=== PATIENT | male | born 1985 | race Asian ===

== ENCOUNTER 2017-06-27 21:06 | Emergency (ER) | payer OTHER ==
[~2017-06-27] VITALS: Ht 165.1 cm; Wt 70.0 kg
[2017-06-27] MEDS ORDERED: LORAZEPAM 0.5MG TABLET PO ONE (23:00)
[2017-06-27 23:35] VITALS: BP 138/78
== END 2017-06-27 23:53 | disposition home or self-care (01) ==
LOC: ER 21:19
DX: F41.9 Anxiety disorder, unspecified (principal); G47.00 Insomnia, unspecified
CPT/HCPCS: 93005; 99283